=== PATIENT | female | born 1970 | race Caucasian/White ===

== ENCOUNTER 2018-04-08 17:57 | Inpatient (IN) | payer OTHER ==
[~2018-04-08] VITALS: Ht 162.6 cm; Wt 81.8 kg
[2018-04-08 19:52] LABS: CALCIUM 7.8 mg/dL (8.5-10.1); CARBON DIOXIDE 28.3 mmol/L (21-32); CHLORIDE SERUM 105 mmol/L (98-107); CREATININE SERUM 0.6 mg/dL (0.6-1.0); GFR1 > 60 mL/min; GLUCOSE SERUM 259 mg/dL (74-106); POTASSIUM SERUM 3.7 mmol/L (3.5-5.1); SODIUM SERUM 135 mmol/L (136-145)
[2018-04-08 19:56] LABS: ALBUMIN 3.5 g/dL (3.4-5.0); ALKALINE PHOSPHATASE 94 U/L (46-116); ALT/SGPT 40 U/L (14-59); AMYLASE 66 U/L (25-115); AST/SGOT 16 U/L (15-37); BILIRUBIN TOTAL 0.7 mg/dL (0.20-1.00); LIPASE 342 IU/L (73-393); TOTAL PROTEIN, SERUM 6.6 g/dL (6.4-8.2)
[2018-04-08 20:05] LABS: BASOPHIL % 0.3 % (0-2); PLATELET COUNT 279 x10^3mcL (130-400); RED CELL DISTRIBUTION WIDTH 13.4 % (11.5-14.5)
[2018-04-08 22:00] VITALS: BP 120/74
[2018-04-08 22:05] VITALS: Ht 162.6 cm; Wt 81.8 kg
[2018-04-08 23:13] LABS: MAGNESIUM 1.8 mg/dL (1.8-2.4); PHOSPHOROUS 3.3 mg/dL (2.5-4.9)
[2018-04-08 23:20] LABS: CHOLESTEROL/HDL RATIO 2.2
[2018-04-09 00:17] LABS: FREE T4 0.99 ng/dL (0.76-1.46); FREE THYROXINE INDEX 2.4 ug/dL (1.4-4.5); T4(THYROXINE) 7.6 ug/dL (4.7-13.3)
[2018-04-09 00:43] LABS: T3 TOTAL 1.32 ng/mL
[2018-04-09 05:42] VITALS: BP 110/62
[2018-04-09 06:29] LABS: microscopic required? NO
[2018-04-09 08:38] LABS: BASOPHIL % 0.3 % (0-2); PLATELET COUNT 234 x10^3mcL (130-400); RED CELL DISTRIBUTION WIDTH 13.1 % (11.5-14.5)
[2018-04-09 09:05] VITALS: BP 104/64
[2018-04-09 09:09] LABS: CARBON DIOXIDE 24.4 mmol/L (21-32); CHLORIDE SERUM 107 mmol/L (98-107); CREATININE SERUM 0.7 mg/dL (0.6-1.0); GFR1 > 60 mL/min; GLUCOSE SERUM 181 mg/dL (74-106); MAGNESIUM 1.8 mg/dL (1.8-2.4); PHOSPHOROUS 3.5 mg/dL (2.5-4.9); POTASSIUM SERUM 3.7 mmol/L (3.5-5.1); SODIUM SERUM 140 mmol/L (136-145)
[2018-04-09 09:16] LABS: UA SPECIFIC GRAVITY >=1.030 (1.005-1.035); urine erythrocyte NEGATIVE (NEGATIVE)
[2018-04-09 17:41] VITALS: BP 112/69
[2018-04-09 23:25] VITALS: BP 125/69
[2018-04-10 06:18] VITALS: BP 104/63
[2018-04-10 07:49] LABS: PLATELET COUNT 222 x10^3mcL (130-400)
[2018-04-10 07:54] LABS: BASOPHIL % 0 % (0-2)
[2018-04-10 08:03] LABS: ALKALINE PHOSPHATASE 114 U/L (46-116); ALT/SGPT 107 U/L (14-59); AST/SGOT 88 U/L (15-37); BILIRUBIN TOTAL 1.7 mg/dL (0.20-1.00); CARBON DIOXIDE 24.6 mmol/L (21-32); CHLORIDE SERUM 105 mmol/L (98-107); CREATININE SERUM 0.6 mg/dL (0.6-1.0); GFR1 > 60 mL/min; GLUCOSE SERUM 187 mg/dL (74-106); POTASSIUM SERUM 3.8 mmol/L (3.5-5.1); SODIUM SERUM 140 mmol/L (136-145)
[2018-04-10 08:09] LABS: MAGNESIUM 1.8 mg/dL (1.8-2.4); PHOSPHOROUS 4.2 mg/dL (2.5-4.9)
[2018-04-10 08:29] LABS: ALBUMIN 2.9 g/dL (3.4-5.0); TOTAL PROTEIN, SERUM 5.6 g/dL (6.4-8.2)
[2018-04-10 10:51] VITALS: BP 106/67
[2018-04-10 21:00] VITALS: BP 98/57
[2018-04-11 04:33] VITALS: BP 113/71
[2018-04-11 06:58] LABS: BASOPHIL % 0.4 % (0-2); PLATELET COUNT 204 x10^3mcL (130-400); RED CELL DISTRIBUTION WIDTH 13.3 % (11.5-14.5)
[2018-04-11 07:17] LABS: MAGNESIUM 1.8 mg/dL (1.8-2.4); PHOSPHOROUS 2.7 mg/dL (2.5-4.9)
[2018-04-11 07:44] LABS: ALBUMIN 2.8 g/dL (3.4-5.0); ALKALINE PHOSPHATASE 108 U/L (46-116); ALT/SGPT 108 U/L (14-59); AST/SGOT 64 U/L (15-37); BILIRUBIN TOTAL 0.9 mg/dL (0.20-1.00); CALCIUM 7.2 mg/dL (8.5-10.1); CARBON DIOXIDE 25.6 mmol/L (21-32); CHLORIDE SERUM 104 mmol/L (98-107); CREATININE SERUM 0.7 mg/dL (0.6-1.0); GFR1 > 60 mL/min; GLUCOSE SERUM 155 mg/dL (74-106); POTASSIUM SERUM 3.3 mmol/L (3.5-5.1); SODIUM SERUM 137 mmol/L (136-145); TOTAL PROTEIN, SERUM 5.7 g/dL (6.4-8.2)
[2018-04-11 08:00] VITALS: BP 125/73
[2018-04-11 09:48] VITALS: BP 111/66
[2018-04-11 18:11] VITALS: BP 127/74
[2018-04-11 20:58] VITALS: BP 125/79
[2018-04-12 05:32] VITALS: BP 119/71
[2018-04-12 07:18] LABS: BASOPHIL % 0.4 % (0-2); PLATELET COUNT 222 x10^3mcL (130-400)
[2018-04-12 07:25] LABS: CALCIUM 7.7 mg/dL (8.5-10.1); CARBON DIOXIDE 24.6 mmol/L (21-32); CHLORIDE SERUM 104 mmol/L (98-107); CREATININE SERUM 0.7 mg/dL (0.6-1.0); GFR1 > 60 mL/min; GLUCOSE SERUM 102 mg/dL (74-106); MAGNESIUM 1.8 mg/dL (1.8-2.4); PHOSPHOROUS 3.3 mg/dL (2.5-4.9); POTASSIUM SERUM 3.3 mmol/L (3.5-5.1); SODIUM SERUM 138 mmol/L (136-145)
[2018-04-12 08:00] VITALS: BP 131/79
[2018-04-12] MEDS ORDERED: ZOF4 PO (14:05)
[2018-04-12] MEDS ORDERED: CIPRO500 MG PO (14:05)
[2018-04-12] MEDS ORDERED: NORCO1 TA2 PO (14:05)
[2018-04-12 14:24] VITALS: BP 131/79
== END 2018-04-12 15:10 | disposition home or self-care (01) | DRG 263 ==
LOC: ED 17:57 → MU 20:48
PROVIDERS: Internal Medicine; Specialist; Surgery
PROC: 0FT44ZZ Resection of Gallbladder, Percutaneous Endoscopic Approach (ICD-10-PCS; principal; 2018-04-09 17:00)
DX: K80.00 Calculus of gallbladder with acute cholecystitis without obstruction (principal); E43 Unspecified severe protein-calorie malnutrition; K76.0 Fatty (change of) liver, not elsewhere classified; E11.65 Type 2 diabetes mellitus with hyperglycemia; E83.51 Hypocalcemia; E02 Subclinical iodine-deficiency hypothyroidism; I16.0 Hypertensive urgency; E66.9 Obesity, unspecified; Z68.31 Body mass index [BMI] 31.0-31.9, adult; I10 Essential (primary) hypertension; E78.00 Pure hypercholesterolemia, unspecified; Z90.710 Acquired absence of both cervix and uterus; E78.5 Hyperlipidemia, unspecified
CPT/HCPCS: 83880; 84439; J0330; J1170; J1885; J2175; J2250; J2270; J2405; J2543; J2704; J2710; J3010; J3490; J7030; Q0092